=== PATIENT | male | born 1970 | race Caucasian/White ===

== ENCOUNTER 2017-11-06 15:16 | Emergency (ER) | payer OTHER ==
[~2017-11-06] VITALS: Ht 185.4 cm; Wt 100.8 kg
[2017-11-06 15:32] VITALS: BP 163/96; PULSE 67; RESP 18; TEMP 98.3; O2SAT 97
[2017-11-06] MEDS ORDERED: SILVER NITR/POTASSIUM NITRATE APPLICATORS TOPICAL ONE ×2 (17:00→17:30)
--- NOTE | 2017-11-06 17:20 | PD ---
HPI Chief Complaint: Skin Problem Time Seen by Provider: 16:56 Travel History International Travel<30 days: No Contact w/Intl Traveler<30days: No Traveled to known affect area: No History of Present Illness HPI 47-year-old male presents emergency department for evaluation of left second and third toe bleeding that occurred today after a piece of plywood fell on his feet. Says he went to urgent care for evaluation and they removed 2 toenails and said his toenails were crushed. They advised him to return to the emergency department if the bleeding persisted. Says that there is pain however , his concern is the bleeding. He denies chronic medical issues medication use. Denies blood thinner use. PFSH Past Medical History Cancer: Yes (BLADDER) Tetanus Vaccination: Unknown Past Surgical History Appendectomy: Yes Social History Alcohol Use: Yes (OCCAS) Tobacco Use: No Substance Use: No Allergies-Medications (Allergen,Severity, Reaction): Coded Allergies: No Known Allergies (Unverified , 11/06/17) Reported Meds & Prescriptions Reported Meds & Active Scripts Active Ibuprofen 800 Mg Tab 800 Mg PO Q8H PRN 5 Days Review of Systems Except as stated in HPI: all other systems reviewed are Neg Physical Exam Narrative GENERAL: Well-nourished, well-developed patient, in NAD SKIN: Focused skin assessment warm/dry. No rashes or lesions. HEAD: Normocephalic. Atraumatic. EYES: No scleral icterus. No injection or drainage. PERRLA, EOMI THROAT: Airway is patent. NECK: Supple, trachea midline. No JVD or lymphadenopathy. No meningismus. CARDIOVASCULAR: Regular rate and rhythm without murmurs, gallops, or rubs. RESPIRATORY: Breath sounds equal bilaterally. No accessory muscle use. No wheezes, rales, or rhonchi MUSCULOSKELETAL: No cyanosis, or edema. Left foot-second and third toes blood oozing from the site. BACK: Nontender without obvious deformity. No CVA tenderness. Data Data Last Documented VS Vital Signs Date Time Temp Pulse Resp B/P (MAP) Pulse Ox O2 Delivery O2 Flow Rate FiO2 11/06/17 15:32 98.3 67 18 163/96 (118) 97 Orders Orders Silver Nitrate Applicators (Silver Nitra (11/06/17 17:00) Silver Nitrate Applicators (Silver Nitra (11/06/17 17:30) Tetanus/Diphtheria Tox Adult (Tetanus/Di (11/06/17 18:30) Wound Care (11/06/17 19:29) Ed Discharge Order (11/06/17 19:49) Ibuprofen (Motrin) (11/06/17 20:15) [facility] Medical Decision Making Medical Screen Exam Complete: Yes Emergency Medical Condition: Yes Differential Diagnosis Wound bleeding, cellulitis, erysipelas Narrative Course 47-year-old male presents emergency department for evaluation of left second and third toe bleeding that occurred today after a piece of plywood fell on his feet. Says he went to urgent care for evaluation and they removed 2 toenails and said his toenails were crushed. They advised him to return to the emergency department if the bleeding persisted. Says that there is painful however, his concern is the bleeding. He denies chronic medical issues medication use. Denies blood thinner use. He denies numbness or tingling of the toes. Vital signs are stable. Offered pain medication multiple times throughout the visit. Eventually did request some pain medication. Motrin 800 mg administered. Initially irrigated and applied silver nitrate sticks. Unfortunately, this did not control the bleeding. Eventually applied Gelfoam which did control the bleeding. The area was wrapped with somewhat of a pressure gauze. Patient will be discharged with Keflex and Motrin. Advised that she should follow-up here or with his primary care physician within 2-3 days for evaluation. Advised that he should return for worsening or persistent symptoms. Diagnosis Primary Impression: Bleeding from wound Referrals: Primary Care Physician Departure Forms: Tests/Procedures, Work Release Enter return to work date: Nov 10, 2017 Special Instructions: Avoid excessive standing or pressure on the area. Additional Instructions: Follow up with your primary care physician within 2-3 days. Keep area clean and dry for 24 hours. After 24 hours, you may bathe as normal but dry the area thoroughly. You may use [id number] triple antibiotic ointments for your injury daily. Change dressings daily. If bleeding starts, apply pressure and elevate the area. If you developed increased redness, swelling, or pain return to the emergency department as this could be a sign of infection. Scripts Ibuprofen (Ibuprofen) 800 Mg Tab 800 MG PO Q8H Y for Pain/Inflammation for 5 Days, #15 TAB 0 Refills Prov: Zackary Ureña MD 11/06/17 Disposition: 01 DISCHARGE HOME Condition: Stable Guerita Maher November 06, 2017 17:20
[2017-11-06] MEDS ORDERED: TETANUS/DIPHTHERIA TOXOID ADULT 0.5 ML VIAL IM ONE (18:30)
[2017-11-06] MEDS ORDERED: IBUPROFEN 800 MG TAB PO ONE (20:15)
[2017-11-06] MEDS ORDERED: IBUP1TAB7 PO (20:16)
[2017-11-06] MEDS ORDERED: CEPH-460 PO (21:04)
== END 2017-11-06 20:25 | disposition home or self-care (01) ==
LOC: PHED 15:16 → PHEFT 20:25
DX: S91.115A Laceration without foreign body of left lesser toe(s) without damage to nail, initial encounter (principal); W22.8XXA Striking against or struck by other objects, initial encounter; Z23 Encounter for immunization
CPT/HCPCS: 12001; 90471; 90714